=== PATIENT | female | born 1940 | race Caucasian/White ===

== ENCOUNTER 2022-05-17 15:49 | Inpatient (IN) | payer MEDICARE, MEDICAID, SELFPAY ==
[2022-05-17] VITALS (8 sets, daily range): BP systolic 141–168; BP diastolic 77–103; PULSE 59–75; RESP 14–20; TEMP 36.4–37.2; O2SAT 86–94; BMI 30.7
--- NOTE | ~2022-05-17 | US_ITS ---
EXAMINATION: US renal BI DATE: 05/18/2022 11:26 INDICATION: Kidney failure. TECHNIQUE: Multiple ultrasound grayscale images of the kidneys were obtained. COMPARISON: CT abdomen and pelvis 02/24/2011 FINDINGS: The right kidney measures 9.0 x 4.2 x 5.1 cm. The left kidney measures 9.2 x 4.2 x 4.6 cm. The kidney s demonstrate normal parenchymal echogenicity. There is no hydronephrosis. The bladder is decompresse d by a Haji catheter. IMPRESSION: 1. Normal kidney sizes. No hydronephrosis. Reviewed, dictated and finalized at location A.
--- NOTE | ~2022-05-17 | US_ITS ---
EXAMINATION:US venous doppler LE BI INDICATION:Leg edema TECHNIQUE: Multiple grayscale, color flow and Doppler images of the right and left lower extremity de ep venous systems were obtained and reviewed. COMPARISON:No prior studies for comparison. FINDINGS: The common femoral, superficial femoral and popliteal veins demonstrate normal respiratory variation, augmentation and compressibility. Color flow is also seen within the posterior tibial, pe roneal, greater saphenous and profunda veins. There is a right Sexton's cyst measuring 5.2 x 1.2 cm. IMPRESSION: 1: No lower extremity deep venous thrombosis. Reviewed, dictated and finalized at location B.
--- NOTE | ~2022-05-17 | XR_ITS ---
XR chest 1V portable DATE: 05/17/2022 17:58 INDICATION: Low oxygen saturation. New congestive heart failure. History of hypertension, diabetes TECHNIQUE: Portable upright AP view on 05/13/2022 at 1754 hours COMPARISON: 05/24/2017 PA and lateral chest FINDINGS: Cardiomegaly. There is mild pulmonary vascular congestion, redistribution, mild pleural eff usions and bilateral pulmonary infiltrates, primarily in the lower lung zones, left greater than righ t. The findings suggest congestive heart failure, pulmonary edema. Pneumonia and aspiration are not e xcluded. Scoliosis and degenerative change of the thoracic spine. Osteopenia. IMPRESSION: Congestive changes and bilateral predominantly lower lung infiltrates, left greater than right Reviewed, dictated and finalized at location A. IMPRESSION: Congestive changes and bilateral predominantly lower lung infiltrat es, left greater than right
--- NOTE | 2022-05-17 15:57 | ECG_ITS ---
Measurements Intervals [place] Rate: 72 P: 74 AR: 267 QRS: -7 QRSD: 88 T: 94 QT: 367 QTc: 404 Interpretive Statements SINUS RHYTHM WITH FIRST DEGREE AV BLOCK BASELINE ARTIFACT CANNOT RULE OUT ANTERIOR MYOCARDIAL INFARCTION, PROBABLY OLD CANNOT RULE OUT INFERIOR MYOCARDIAL INFARCTION, PROBABLY OLD ABNORMAL ECG NO PREVIOUS ECG AVAILABLE FOR COMPARISON Electronically Signed On 05-17-2022 16:29:30 CDT by Bill Lozano M.D.
--- NOTE | 2022-05-17 16:35 | ED.GENADULT ---
HPI - General Adult General Chief complaint: Shortness of Breath/Dyspnea Stated complaint: sob Time Seen by Provider: 05/17/22 16:12 History of Present Illness HPI narrative: this is an 82-year-old female presents to the ED for low oxygen levels. She was having shortness of breath and was found to be saturating in the 70s. The patient has a dry cough. The patient is denies chest pain, abdominal pain, fever, chills, She denies lower extremity edema. denies history of COPD or heart failure. Patient denies any other complaints. Related Data Allergies Allergy/AdvReac Type Severity Reaction Status Date / Time erythromycin base Allergy Unknown Unknown Verified 05/17/22 17:45 Penicillins Allergy Unknown Unknown Verified 05/17/22 17:45 Review of Systems Review of Systems: CONSTITUTIONAL: Denies night sweats. EYES: No eye pain ENT: Denies rhinorrhea CARDIOVASCULAR: Denies palpitations RESPIRATORY: Denies hemoptysis GASTROINTESTINAL: Denies hematemesis GENITOURINARY: Denies hematuria. SKIN: Denies rash MUSCULOSKELETAL: Denies myalgia. NEUROLOGIC: Denies weakness. PSYCHIATRIC: Denies delusions PMFSH Past Medical History Medical History Essential (primary) hypertension Essential (primary) hypertension Hyperlipidemia Hyperlipidemia Hypothyroid Hypothyroid Type 2 diabetes mellitus without complications Type 2 diabetes mellitus without complications Surgical History Surgical History History of bilateral hip replacements Family History Family History Other Family history of development disorder Hypertension Social History Social History Smoking status: Never smoker Second hand tobacco smoke exposure: No Alcohol intake: current Exam Narrative: APPEARANCE: No apparent distress. Head atraumatic. EYES: PERRLA/EOMI, NOSE: Normal no drainage NECK: Supple, Trachea midline RESPIRATORY: Patient has scattered expiratory wheezes and rhonchi bilaterally. CARDIOVASCULAR: S1S2 appreciated , no peripheral edema ABDOMINAL: Soft, nontender, nondistended, MUSCULOSKELETAl: No obvious deformities NEURO: Alert. Moving 4/4 extremities SKIN:: Warm, dry. Normal color PSYCHIATRIC: Normal affect Course Vital Signs Vital signs: Vital Signs Temperature 99 F 05/17/22 15:49 Pulse Rate 75 05/17/22 15:49 Respiratory Rate 19 05/17/22 15:49 Pulse Oximetry 93 05/17/22 15:49 Oxygen Delivery Nasal Cannula 05/17/22 15:49 Oxygen Flow Rate 4 05/17/22 15:49 Temperature 99 F 05/17/22 15:49 Pulse Rate 60 05/17/22 16:47 Respiratory Rate 20 05/17/22 16:47 Blood Pressure 145/88 H 05/17/22 16:47 Pulse Oximetry 94 05/17/22 16:47 Oxygen Delivery Nasal Cannula 05/17/22 15:58 Oxygen Flow Rate 4 05/17/22 15:58 Procedures Pulse Oximetry Interpretation Digit-Finger: Initial pulse oximetry readin Pulse Oximetry: 94 Actions Taken: increased FIO2 to (Placed on supplemental 02 4L nc) Medical Decision Making MDM Narrative Medical decision making narrative: this is an 82-year-old female presenting ED with shortness of breath and hypoxia. She was in the 80s on room air. She was placed on 4 L nasal cannula which improved her saturation. Patient has scattered rhonchi in her lungs consistent with pneumonia or new onset heart failure. Lab work, EKG, chest x-ray, COVID and flu swabs have been ordered. EKG interpretation: Rhythm [sinus], Rate 72, Hext -[normal], FL -[normal], QRS [narrow], QTC [normal], T waves -, ST Segments - [Negative for concerning elevations] Final interpretations: [Normal Sinus Rhythm] Has a mild troponin elevation at 0.045. She has been given aspirin this [place] [address]. The rest her laboratory studi
[2022-05-17 16:42] LABS: Basophils Absolute Auto 0.1 K/mm3 (0.0-0.1); Basophils Percent Auto 1.3 % (0.2-1.2); Eosinophils Absolute Auto 0.1 K/mm3 (0-0.3); Eosinophils Percent Auto 1.5 % (0-4.4); Hematocrit 37.9 % (37.0-47.0); Hemoglobin 11.9 g/dL (12.0-15.0); Immature Granulocyte Absolute 0.02 K/mm3 (0.00-0.031); Immature Granulocyte Percent A 0.4 % (0-0.5); Lymphocytes Absolute Auto 2.39 K/mm3 (0.9-3.2); Lymphocytes Percent Auto 43.9 % (18.3-44.2); Mean Corpuscular HGB Conc 31.4 g/dl (32-36); Mean Corpuscular Hemoglobin 30.4 pg (26-34); Mean Corpuscular Volume 96.7 fl (80-100); Mean Platelet Volume 9.3 fl (7.4-10.4); Monocytes Absolute Auto 0.6 K/mm3 (0.1-0.6); Monocytes Percent Auto 10.3 % (2.6-8.5); Neutrophils Absolute Auto 2.3 K/mm3 (1.3-6.7); Neutrophils Percent Auto 42.6 % (45.5-73.1); Platelet Count Result 200 k/mm3 (150-375); Red Blood Count 3.92 M/mm3 (4.2-5.4); Red Cell Distribution Width 16.6 % (11.5-14.5); White Blood Count 5.4 K/mm3 (4.5-10.0)
[2022-05-17] MEDS: SODIUM CHLORIDE 0.9% IV 1,000 ML 999 ML IV CONT (16:45)
[2022-05-17 16:59] LABS: Alanine Aminotransferase 15 U/L (6-35); Albumin Level 4.3 g/dL (3.5-5.1); Alkaline Phosphatase 78 U/L (38-126); Anion Gap 14 mmol/L (8-16); Aspartate Amino Transferase 26 U/L (14-36); Bilirubin,Total 0.6 mg/dL (0.2-1.3); Blood Urea Nitrogen 16 mg/dL (7-17); Calcium 8.7 mg/dL (8.4-10.2); Carbon Dioxide 35 mmol/L (22-30); Chloride 91 mmol/L (98-107); Estimated CRCL calculation 29 ml/min; Estimated Glomerular Filt Rate 36; Glucose 123 mg/dL (65-110); Magnesium 1.9 mg/dL (1.6-2.3); Potassium 3.6 mmol/L (3.4-5.0); Sodium 140 mmol/L (137-145)
[2022-05-17 17:02] LABS: NT Pro B Type Natriuretic Pept 11300 pg/mL (5-100)
[2022-05-17 17:16] LABS: Influenza A QL RT-PCR Negative (Negative); Influenza B QL RT-PCR Negative (Negative); SARS-CoV-2 RNA PCR Negative
[2022-05-17 17:34] LABS: Troponin I 0.045 ng/mL (0.000-0.034)
[2022-05-17] MEDS: FUROSEMIDE INJ 40 MG/4 ML VIAL IV PUSH (17:45)
[2022-05-17 18:02] LABS: Add Urine Microscopic? YES; Appearance Urine Cloudy (Clear); Bacteria Urine Trace /hpf; Bilirubin Urine Negative (Negative); Blood Urine Negative (Negative); Budding Yeast Urine Present /hpf; Color Urine Yellow (Yellow); Glucose Urine UA Negative (Negative); Ketones Urine Negative (Negative); Leukocyte Esterase Ur 3+ LEU/UL (Negative); Mucus Urine Rare /lpf; Nitrate Urine Negative (Negative); Protein Urine 2+ mg/dL (Negative); Squamous Epithelial Cell Urine Occasional /hpf (Few); Urobilinogen Urine Negative mg/dL (<2.0); WBC Urine >75 /hpf
--- NOTE | 2022-05-17 18:28 | PC.NURSE ---
Patient is continent and using bedside commode.
--- NOTE | 2022-05-17 19:00 | PC.NURSE ---
assumed care of pt. at this time. Report from ESPERANZA Acuna
--- NOTE | 2022-05-17 19:00 | PM.IMHP ---
H&P: HPI History of Present Illness Date/Time: 05/17/22 19:00 <Tita Toledo PA-C - Last Filed: 05/19/22 01:26> Chief Complaint: Shortness of breath. <Tita Toledo PA-C - Last Filed: 05/19/22 01:26> Narrative: This is an 82-year-old female with hypertension and type 2 diabetes mellitus who presented to the emergency department for evaluation of shortness of breath. She is not the greatest historian and initially the only thing she could tell me that was that she feels ?terrible.? After pretty extensive questioning I was able to ascertain that she has had a dry cough, decreased appetite, and mild shortness of breath. It is my understanding that she was hypoxic this morning at her assisted living facility with SpO2 in the 70s and she was sent to the ER for evaluation. She is currently requiring 4 liters nasal cannula to keep her oxygen saturations in the mid 90s. The rest her vital signs were stable on arrival. Chest x-ray showed congestive changes and bilateral predominantly lower lung infiltrates and her troponin and BNP were both elevated and she is being admitted in this setting for presumed new onset congestive heart failure. She has no known history of cardiac disease and she denies having experienced any chest pain, nausea, sweats, or the like in the last couple of days. <Tita Toledo PA-C - Last Filed: 05/19/22 01:26> Review of Systems Review of Systems: Twelve systems were reviewed. She thinks her weight has remained stable. She has not had a fever. She denies headache. No sinus congestion or sore throat. She denies chest pain, pleuritic pain, and palpitations. No orthopnea, paroxysmal nocturnal dyspnea, or significant lower extremity edema that she has noticed. She has had a wound on her mid upper chest for quite some time, initially she thought perhaps it was due to a bug bite and she has been caring for it at home. In fact she keeps it covered with Band-Aids and she has not let anybody look at it. 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 She denies nausea, vomiting, and diarrhea but her appetite has been poor. No dysuria, urinary urgency, frequency, hesitancy, or any other UTI like symptoms. Except as documented, all other systems were reviewed and are negative. <Tita Toledo PA-C - Last Filed: 05/19/22 01:26> [facility] Past Medical History Medical History: Medical History Essential (primary) hypertension Hyperlipidemia Hypothyroid Type 2 diabetes mellitus without complications <Tita Toledo PA-C - Last Filed: 05/19/22 01:26> Surgical History Surgical History: Surgical History History of bilateral hip replacements <JERICHO Ramos Last Filed: 05/19/22 01:26> Family History Family History: Family History Other Family history of development disorder Hypertension <Tita Toledo PA-C - Last Filed: 05/19/22 01:26> Social History Social History: Social History Social History: Surrogate medical decision maker: Valentín Newby, son. Code status: Full code. Smoking status: Never smoker Second hand tobacco smoke exposure: No Alcohol intake: never Substance use: never Lack of Transportation: No Lack of Food: Never True Current Housing: I Have Housing Concerned About Future Housing: No Difficulty Paying Gas/Electric Bills: No Difficulty Paying for Meds: No Currently Unemployed: No Education: High School Diploma/GED Difficulty w/ Childcare or Family Care: No Additional living arrangements comments: Assisted living at [facility]. Spiritual care concerns: No <JERICHO Ramos Last Filed: 1
--- NOTE | 2022-05-17 19:30 | PM.CNCAR ---
Assessment and Plan Assessment and plan (1) Congestive heart failure: Code(s): I50.9 - Heart failure, unspecified Status: Acute Assessment and Plan: Unknown at this time if systolic or diastolic heart failure. CXR shows CHF with NTproBNP 11,300. Received Lasix 40 mg IV x1 in ER. Continue Lasix 20 mg IV BID. Obtain echo. (2) Acute UTI: Code(s): N39.0 - Urinary tract infection, site not specified Status: Acute Assessment and Plan: Antibiotic as per hospitalist. (3) Hyperlipidemia: Code(s): E78.5 - Hyperlipidemia, unspecified Status: Acute Assessment and Plan: On Atorvastatin. (4) Essential (primary) hypertension: Code(s): I10 - Essential (primary) hypertension Status: Acute Assessment and Plan: Mildly high. Monitor. (5) Type 2 diabetes mellitus without complications: Code(s): E11.9 - Type 2 diabetes mellitus without complications Status: Acute Assessment and Plan: Manage as per hospitalist. (6) Elevated troponin: Code(s): R77.8 - Other specified abnormalities of plasma proteins Status: Acute Assessment and Plan: Mild elevation at .045. Elevation could be due to combination of CHF/UTI/acute ARF. EKG does not suggest ACS without any acute ST changes. Trend troponin. History of Present Illness History of Present Illness Consult date/time: 05/17/22 19:30 Reason For Visit: CHF Narrative: 82 yr old woman from [facility] presents to ER for sob. She has a history of DM, hypertension and dyslipidemia. Reports that at [facility] she felt sob and had cough. Her pulse ox was checked and running low in 70-80% range. Ambulance then brought her to ER. Currently she is on oxygen with pulse ox at 92%, had Lasix IV dose and feeling less sob. Normally she walks holding on to a rail to avoid falling and can walk at leisurely to slow pace where she resides just fine. Has edema of legs. Denies chest pain, palpitations, dizziness. Review of Systems Review of Systems: All systems reviewed & are unremarkable except as noted in HPI and below Constitutional: Constitutional: Reports as per HPI, Denies chills and Denies fever(s) Cardiovascular: Cardiovascular: Reports as per HPI, Denies chest pain, Denies irregular heart rhythm, Reports leg edema and Denies lightheadedness Respiratory: Respiratory: Reports as per HPI, Reports cough and Reports dyspnea Gastrointestinal: Gastrointestinal: Reports as per HPI and Denies abdominal pain Genitourinary: Genitourinary: Reports as per HPI and Denies dysuria Musculoskeletal: Musculoskeletal: Reports as per HPI Neurologic: Reports as per HPI, Denies dizziness and Denies syncope [facility] Past Medical History Medical History (Updated 05/17/22 @ 19:37 by Kp Daly DO) Essential (primary) hypertension Hyperlipidemia Hypothyroid Type 2 diabetes mellitus without complications Surgical History Surgical History History of bilateral hip replacements Family History Family History Other Family history of development disorder Hypertension Social History Social History Smoking status: Never smoker Second hand tobacco smoke exposure: No Alcohol intake: current Meds Home Medications and Allergies Home Medications Medication Instructions Recorded Confirmed Type atorvastatin 40 mg tablet 40 mg PO QHS #90 tabs 03/12/21 Rx cholecalciferol (vitamin D3) 1,250 1,250 mcg PO WEEKLY #12 caps 03/12/21 Rx mcg (50,000 unit) capsule levothyroxine 88 mcg tablet 88 mcg PO DAILY #90 tabs 03/12/21 Rx potassium chloride 20 mEq 20 meq PO DAILY #30 tabs 05/15/21 Rx tablet,extended release losartan 100 mg tablet 100 mg PO DAILY #90 tabs 11/03/21 Rx sitagliptin 100 mg tablet (Januvia) 100 mg PO
--- NOTE | 2022-05-17 20:00 | ADMGEN ---
This patient, Irina Fitzgerald, was admitted to IMU Room 205-01. Patient/family oriented to hospital policies and general routines including ID bracelet, bed and alarms, visiting hours, pain management, procedures, bathroom and other care routines, personal items, smoking policy, room service/diet, and visiting hours. Information on how to activate the Rapid Response Team has been discussed. Patient/Family are encouraged to report perceived risks to care and to ask questions if they do not understand what they are told or what they should do.
[2022-05-17 22:20] LABS: Troponin I 0.058 ng/mL (0.000-0.034)
[2022-05-18] VITALS (18 sets, daily range): BP systolic 102–129; BP diastolic 48–72; PULSE 53–89; RESP 17–19; TEMP 36.5–37; O2SAT 90–100
--- NOTE | 2022-05-18 | ECHO_ITS ---
Patient Info Name: Irina Fitzgerald Age: 82 years : 1940 Gender: Female Ht: 64 in Wt: 179 lbs BSA: 1.94 m2 HR: 54 bpm BP: 121 / 65 mmHg Heart Rhythm: Sinus Rhythm Technical Quality: Fair Exam Date: 05/18/2022 9:31 AM Exam Location: [facility] Patient Status: Inpatient Admit Date: 05/18/2022 Staff Ordering Physician: Kp Daly DO Textile Examiner: Roxy Son RDCS Attending Provider: Denita Botello MD Referring Physician: Addy BLAKELY; Exam Type: CA echo doppler color flow Study Info Indications - chf Complete two-dimensional, color flow and Doppler transthoracic echocardiogram is performed. Summary 1. Complete two-dimensional, color flow and Doppler transthoracic echocardiogram is performed. 2. Left ventricular chamber dimension is mildly enlarged. 3. Entire apex is severely hypokinetic to akinetic. No apical thrombus. 4. Left ventricular systolic function is mildly reduced, estimated at 45-50%. 5. The left ventricular diastolic function is abnormal. 6. E/e' 35 is significantly elevated. 7. There is moderate aortic valve sclerosis. 8. There is mild aortic valve stenosis with a peak velocity of 188 cm/s, mean gradient of 8 mmHg, and aortic valve area of 1.6 cm2. 9. There is mild mitral valve regurgitation. 10. There is mild tricuspid valve regurgitation. 11. Mild pulmonary hypertension, estimated pulmonary arterial systolic pressure is 47 mmHg. 12. There is trace pulmonic regurgitation. Left Ventricle E/e' 35 is significantly elevated. Entire apex is severely hypokinetic to akinetic. No apical thrombus. Left ventricular chamber dimension is mildly enlarged. Left ventricular systolic function is mildly reduced, estimated at 45-50%. The left ventricular diastolic function is abnormal. Right Ventricle Right ventricular chamber dimension is normal. Right ventricular systolic function is normal. Left Atria Left atrial chamber dimension is normal. Right Atria Right atrial chamber dimension is normal. Aortic Valve The aortic valve is trileaflet. There is moderate aortic valve sclerosis. There is mild aortic valve stenosis with a peak velocity of 188 cm/s, mean gradient of 8 mmHg, and aortic valve area of 1.6 cm2. There is no aortic valve regurgitation. Pulmonic Valve There is trace pulmonic regurgitation. Mitral Valve There is no mitral valve stenosis. There is mild mitral valve regurgitation. Tricuspid Valve There is mild tricuspid valve regurgitation. Mild pulmonary hypertension, estimated pulmonary arterial systolic pressure is 47 mmHg. Pericardium/Pleural There is no pericardial effusion. Inferior Vena Cava Normal inferior vena cava with >50% collapse upon inspiration consistent with normal right atrial pressure, 5 mmHg. Aorta The aortic root size at the sinus of Valsalva is normal. Left Ventricular Outflow Tract Name Value Normal LVOT 2D LVOT Diameter 2.0 cm LVOT Doppler LVOT Peak Gradient 4 mmHg LVOT Mean Gradient 2 mmHg LVOT VTI 20 cm
[2022-05-18 02:37] LABS: D Dimer 2.35 ug/mL (<0.48); Troponin I 0.067 ng/mL (0.000-0.034)
[2022-05-18 05:13] LABS: Hematocrit 36.7 % (37.0-47.0); Hemoglobin 11.6 g/dL (12.0-15.0); Mean Corpuscular HGB Conc 31.6 g/dl (32-36); Mean Corpuscular Hemoglobin 29.7 pg (26-34); Mean Corpuscular Volume 93.9 fl (80-100); Platelet Count Result 187 k/mm3 (150-375); Red Blood Count 3.91 M/mm3 (4.2-5.4); White Blood Count 4.9 K/mm3 (4.5-10.0)
[2022-05-18 05:23] LABS: Alanine Aminotransferase 14 U/L (6-35); Albumin Level 3.8 g/dL (3.5-5.1); Alkaline Phosphatase 76 U/L (38-126); Anion Gap 12 mmol/L (8-16); Aspartate Amino Transferase 22 U/L (14-36); Bilirubin,Total 0.8 mg/dL (0.2-1.3); Blood Urea Nitrogen 13 mg/dL (7-17); Calcium 8.3 mg/dL (8.4-10.2); Carbon Dioxide 38 mmol/L (22-30); Chloride 91 mmol/L (98-107); Estimated CRCL calculation 30 ml/min; Estimated Glomerular Filt Rate 39; Glucose 107 mg/dL (65-110); Potassium 3.3 mmol/L (3.4-5.0); Sodium 141 mmol/L (137-145)
[2022-05-18 05:24] LABS: Hemoglobin A1C 6.5 % (<5.7)
[2022-05-18 07:16] LABS: Free T4 Free Thyroxine Reflex 0.38 ng/dL (0.78-2.19)
[2022-05-18 07:46] LABS: Cholesterol 187 mg/dL (0-200); HDL Direct 26 mg/dL; Triglycerides 139 mg/dL (<150)
[2022-05-18 07:57] LABS: LDL Cholesterol Direct 133 mg/dL
--- NOTE | 2022-05-18 07:58 | PM.PNCARD ---
Progress Note: A&P Assessment and Plan (1) Congestive heart failure: Code(s): I50.9 - Heart failure, unspecified Status: Acute Assessment and Plan: Unknown at this time if systolic or diastolic heart failure. CXR shows CHF with NTproBNP 11,300. Received Lasix 40 mg IV x1 in ER. Continue Lasix 20 mg IV BID. KCl 20 meq PO BID for potassium 3.3. Obtain echo today. (2) Acute UTI: Code(s): N39.0 - Urinary tract infection, site not specified Status: Acute Assessment and Plan: Antibiotic as per hospitalist. (3) Hyperlipidemia: Code(s): E78.5 - Hyperlipidemia, unspecified Status: Acute Assessment and Plan: On Atorvastatin. (4) Essential (primary) hypertension: Code(s): I10 - Essential (primary) hypertension Status: Acute Assessment and Plan: Stable. (5) Type 2 diabetes mellitus without complications: Code(s): E11.9 - Type 2 diabetes mellitus without complications Status: Acute Assessment and Plan: Manage as per hospitalist. (6) Elevated troponin: Code(s): R77.8 - Other specified abnormalities of plasma proteins Status: Acute Assessment and Plan: Mild elevation at .045, .058, .067. Elevation could be due to combination of CHF/UTI/acute ARF. EKG does not suggest ACS without any acute ST changes. (7) Leg edema, right: Code(s): R60.0 - Localized edema Status: Acute Assessment and Plan: Venous duplex study. Subjective Date/time seen: 05/18/22 07:58 Interval history: Denies chest pain or sob this morning. Exam Const: General: cooperative, healthy appearing and comfortable Resp: Auscultation: no crackles, no rales, rhonchi and no wheezes Cardio: Rate: regular rate Rhythm: regular rhythm Heart sounds: no murmurs Peripheral pulses: dorsalis pedis present GI: GI Palp: No abdominal tenderness and Yes Soft to palpation Neuro: General: oriented to person, oriented to place and oriented to time Extrem: Right lower extremity: edema Left lower extremity: no edema Other: Mild-mod edema of right leg Objective Data Vital Signs Vital Signs: Vital Signs - 24 hr 05/17/22 18:27 05/17/22 15:49 05/17/22 15:58 Temperature 99 F Pulse Rate 75 Respiratory Rate 19 Blood Pressure 168/103 H Pulse Oximetry 93 Pulse Oximetry [Digit-Finger] 94 Oxygen Delivery Nasal Cannula Oxygen Flow Rate 4 05/17/22 15:58 05/17/22 15:58 05/17/22 16:47 Temperature Pulse Rate 60 Respiratory Rate 20 Blood Pressure 145/88 H Pulse Oximetry 86 L 94 94 Pulse Oximetry [Digit-Finger] Oxygen Delivery Room Air Nasal Cannula Oxygen Flow Rate 4 05/17/22 19:15 05/17/22 20:00 05/17/22 22:00 Temperature 98.2 F 97.9 F Pulse Rate 66 66 63 Respiratory Rate 14 20 Blood Pressure 158/98 H 151/88 H Pulse Oximetry 94 93 Pulse Oximetry [Digit-Finger] Oxygen Delivery Oxygen Flow Rate 05/17/22 23:36 05/18/22 00:00 05/18/22 00:00 Temperature 97.6 F Pulse Rate 59 L 63 Respiratory Rate 18 Blood Pressure 141/77 H Pulse Oximetry 94 95 Pulse Oximetry [Digit-Finger] Oxygen Delivery Nasal Cannula Oxygen Flow Rate 4 05/18/22 02:00 05/18/22 04:00 05/18/22 04:00 Temperature 97.7 F Pulse Rate 55 L 66 55 L Respiratory Rate 18 Blood Pressure 121/65 Pulse Oximetry 90 Pulse Oximetry [Digit-Finger] Oxygen Delivery Oxygen Flow Rate 05/18/22 04:00 05/18/22 06:00 Temperature Pulse Rate 54 L Respiratory Rate Blood Pressure Pulse Oximetry 95 Pulse Oximetry [Digit-Finger] Oxygen Delivery Nasal Cannula Oxygen Flow Rate 4 Intake/Output Intake/Output: Intake & Output 05/15/22 05/16/22 05/17/22 05/18/22 23:59 23:59 23:59 23:59 Intake Total 1000 50 Output Total 2900 1200 Balance -1900 -1150 Meds/Results Medications: Active Medications Generic Name Dose Route Start Last Admin Trade Name Freq PRN Rose
[2022-05-18 08:01] LABS: Glucose Point of Care 108 mg/dl (65-105)
[2022-05-18] MEDS: ENOXAPARIN 40 MG/0.4 ML SYRINGE SUB-Q (08:22)
[2022-05-18] MEDS: FUROSEMIDE INJ 40 MG/4 ML VIAL 20 MG IV PUSH ×2 (08:22→16:18)
[2022-05-18] MEDS: LOSARTAN POTASSIUM 100 MG TABLET PO (08:22)
[2022-05-18] MEDS: POTASSIUM CHLORIDE 20 MEQ TABLET.ER PO ×2 (08:40→16:24)
--- NOTE | 2022-05-18 08:42 | PM.IMPN ---
Progress Note: A&P Assessment and Plan (1) Congestive heart failure: Code(s): I50.9 - Heart failure, unspecified Status: Acute Assessment and Plan: New onset. BNP 31584. Echo finalization pending. Improved. -Continue furosemide 20 mg IV BID -Continue potassium 20 mEq BIDWM -Appreciate Cardiology recommendations (2) Elevated troponin: Code(s): R77.8 - Other specified abnormalities of plasma proteins Status: Acute Assessment and Plan: Troponin 0.045-->0.058--->0.067. Denies chest pain. -Appreciate Cardiology recommendations (3) Skin lesion of chest wall: Code(s): L98.9 - Disorder of the skin and subcutaneous tissue, unspecified Status: Acute Assessment and Plan: Plastic surgery has been consulted. (4) Essential (primary) hypertension: Code(s): I10 - Essential (primary) hypertension Status: Acute Assessment and Plan: Takes losartan 100 mg daily at home. Continue home medications (5) Type 2 diabetes mellitus without complications: Code(s): E11.9 - Type 2 diabetes mellitus without complications Status: Acute Assessment and Plan: Takes sitagliptin at home. Continue. -SSI -poc glucose (6) Abnormal urinalysis: Code(s): R82.90 - Unspecified abnormal findings in urine Status: Acute Assessment and Plan: Has some weakness, so will continue treatment for UTI. UCX pending. -Ceftriaxone 1g daily Plan Subjective Date/time seen: 05/18/22 08:42 Patient denies chest pain or difficulty breathing. Patient sys she does not take any thyroid medication or have a history of hypothyroidism. Review of Systems Respiratory: Respiratory: Denies dyspnea Objective Data Vital Signs Vital Signs: Vital Signs - 24 hr 05/17/22 18:27 05/17/22 15:49 05/17/22 15:58 Temperature 37.2 C Pulse Rate 75 Respiratory Rate 19 Blood Pressure 168/103 H Pulse Oximetry 93 Pulse Oximetry [Digit-Finger] 94 Oxygen Delivery Nasal Cannula Oxygen Flow Rate 4 05/17/22 15:58 05/17/22 15:58 05/17/22 16:47 Temperature Pulse Rate 60 Respiratory Rate 20 Blood Pressure 145/88 H Pulse Oximetry 86 L 94 94 Pulse Oximetry [Digit-Finger] Oxygen Delivery Room Air Nasal Cannula Oxygen Flow Rate 4 05/17/22 19:15 05/17/22 20:00 05/17/22 22:00 Temperature 36.8 C 36.6 C Pulse Rate 66 66 63 Respiratory Rate 14 20 Blood Pressure 158/98 H 151/88 H Pulse Oximetry 94 93 Pulse Oximetry [Digit-Finger] Oxygen Delivery Oxygen Flow Rate 05/17/22 23:36 05/18/22 00:00 05/18/22 00:00 Temperature 36.4 C Pulse Rate 59 L 63 Respiratory Rate 18 Blood Pressure 141/77 H Pulse Oximetry 94 95 Pulse Oximetry [Digit-Finger] Oxygen Delivery Nasal Cannula Oxygen Flow Rate 4 05/18/22 02:00 05/18/22 04:00 05/18/22 04:00 Temperature 36.5 C Pulse Rate 55 L 66 55 L Respiratory Rate 18 Blood Pressure 121/65 Pulse Oximetry 90 Pulse Oximetry [Digit-Finger] Oxygen Delivery Oxygen Flow Rate 05/18/22 04:00 05/18/22 06:00 05/18/22 08:11 Temperature 37.0 C Pulse Rate 54 L 57 L Respiratory Rate 17 Blood Pressure 128/72 Pulse Oximetry 95 100 Pulse Oximetry [Digit-Finger] Oxygen Delivery Nasal Cannula Oxygen Flow Rate 4 Intake/Output Intake/Output: Intake & Output 05/15/22 05/16/22 05/17/22 05/18/22 23:59 23:59 23:59 23:59 Intake Total 1000 50 Output Total 2900 1600 Balance -1900 -1550 Meds/Results Medications: Active Medications Generic Name Dose Route Start Last Admin Trade Name Freq PRN Reason Stop Dose Admin Dextrose 12.5 gm 05/18/22 00:51 Dextrose 50% 25 Gm/50 Ml Syringe IV PUSH PRN PRN Hypoglycemia Protocol Enoxaparin Sodium 40 mg 05/18/22 09:00 05/18/22 08:22 Enoxaparin 40 Mg/0.4 Ml Syringe SUB-Q 40 mg DAILY [facility] Adm
[2022-05-18] MEDS: LEVOTHYROXINE SODIUM 25 MCG TABLET PO (10:04)
[2022-05-18 11:55] LABS: Glucose Point of Care 165 mg/dl (65-105)
--- NOTE | 2022-05-18 12:50 | WPDCN ---
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 After discharge we do need to see her back to do a full body skin check and plan for treatment of these lesions. This was discussed with her. Will follow-up. HPI Data of Consult Date/Time: 05/18/22 12:50 Requesting Physician: Denita Botello MD Primary Care Provider: Zonia Evangelista MD Consult Narrative Reason for consult: Ulcerative mass chest Narrative: Irina Fitzgerald is a 82 year old female who was admitted with multiple medical problems. While here she was noted to have an ulcerated mass on her central chest. They asked me to evaluate for consultation. The patient is a poor historian. She is not exactly clear how long this has been there. She states I thought a bee stung me there PMFSH Past Medical History Medical History Essential (primary) hypertension Hyperlipidemia Hypothyroid Type 2 diabetes mellitus without complications Surgical History Surgical History History of bilateral hip replacements Family History Family History Other Family history of development disorder Hypertension Social History Social History (Updated 05/18/22 @ 00:44 by Tita Toledo PA-C) Social History: Surrogate medical decision maker: Valentín worthington, alea. Code status: Full code. Smoking status: Never smoker Second hand tobacco smoke exposure: No Alcohol intake: never Substance use: never Additional living arrangements comments: Assisted living at [facility]. Spiritual care concerns: No Has the Lack of Transportation Kept You From Medical Appointments or From Getting Medications?: No Within the Past 12 Months, Were You Worried Whether Your Food Would Run Out Before You Got Money to Buy More?: Never True What is Your Housing Situation Today?: I Have Housing Are You Worried That in the Next 2 Months, You May Not Have Your Own Housing to Live In?: No Do You Have Trouble Paying Your Heating Or Electricity Bill?: No Do You Have Trouble Paying For Medicines?: No Are You Currently Unemployed and Looking for Work?: No Highest Level of Education Completed: High School Diploma/GED Do You Have Trouble With Childcare or the Care of a Family Member?: No Meds Home Medications and Allergies Home Medications Medication Instructions Recorded Confirmed Type losartan 100 mg tablet 100 mg PO DAILY 05/17/22 05/17/22 History sitagliptin 100 mg tablet (Januvia) 100 mg PO DAILY 05/17/22 05/17/22 History Allergies Allergy/AdvReac Type Severity Reaction Status Date / Time erythromycin base Allergy Unknown Unknown Verified 05/17/22 17:45 Penicillins Allergy Unknown Unknown Verified 05/17/22 17:45 Vital Signs Vital Signs - 24 hr 05/17/22 18:27 05/17/22 15:49 05/17/22 15:58 Temperature 37.2 C Pulse Rate 75 Respiratory Rate 19 Blood Pressure 168/103 H Pulse Oximetry 93 Pulse Oximetry [Digit-Finger] 94 Oxygen Delivery Nasal Cannula Oxygen Flow Rate 4 05/17/22 15:58 05/17/22 15:58 05/17/22 16:47 Temperature Pulse Rate 60 Respiratory Rate 20 Blood Pressure 145/88 H Pulse Oximetry 86 L 94 94 Pulse Oximetry [Digit-Finger] Oxygen Delivery Room Air Nasal Cannula Oxygen Flow Rate 4 05/17/22 19:15 05/17/22 20:00 05/17/22 22:00 Temperature 36.8 C 36.6 C Pulse Rate 66 66 63 Respiratory Rate 14 20 Blood Pressure 158/98 H 151/88 H Pulse Oximetry 94 93 Pulse Oximetry [Digit-Finger] Oxygen Delivery Oxygen Flow Rate
[2022-05-18 16:12] LABS: Glucose Point of Care 119 mg/dl (65-105)
[2022-05-18 19:54] LABS: Glucose Point of Care 159 mg/dl (65-105)
[2022-05-19] VITALS (14 sets, daily range): BP systolic 100–130; BP diastolic 60–75; PULSE 53–80; RESP 16–20; TEMP 36.1–37.1; O2SAT 90–95
[2022-05-19] MEDS: LEVOTHYROXINE SODIUM 25 MCG TABLET PO (05:03)
[2022-05-19 05:32] LABS: Blood Urea Nitrogen 13 mg/dL (7-17); Calcium 8.2 mg/dL (8.4-10.2); Carbon Dioxide > 40 mmol/L (22-30); Chloride 87 mmol/L (98-107); Estimated CRCL calculation 26 ml/min; Estimated Glomerular Filt Rate 33; Glucose 99 mg/dL (65-110); Potassium 3.9 mmol/L (3.4-5.0); Sodium 138 mmol/L (137-145)
[2022-05-19 05:47] LABS: Troponin I 0.047 ng/mL (0.000-0.034)
--- NOTE | 2022-05-19 07:47 | PM.PNCARD ---
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 CXR shows CHF with NTproBNP 11,300. Received Lasix 40 mg IV x1 in ER. On Lasix 20 mg IV BID and KCl 20 meq PO BID. On Losartan. Due to bradycardia, will hold off on beta radames. 05/18/22 Echo: EF 45-50%, apical akinesis, significant diastolic dysfunction with E/e' 35, mild (LOVE 1.6 cm2), mild MR/TR, RVSP 47 mmHg. Appears euvolemic now. Change Lasix 20 mg IV BID to PO BID to maintain euvolemia. (2) Acute UTI: Code(s): N39.0 - Urinary tract infection, site not specified Status: Acute Assessment and Plan: Antibiotic as per hospitalist. (3) Hyperlipidemia: Code(s): E78.5 - Hyperlipidemia, unspecified Status: Acute Assessment and Plan: Start Pravastatin and aspirin EC 81 mg daily, given she probably has CAD with apical akinesis. However this is not acute wall motion abnormality given only slight troponin elevation. (4) Essential (primary) hypertension: Code(s): I10 - Essential (primary) hypertension Status: Acute Assessment and Plan: Stable. (5) Type 2 diabetes mellitus without complications: Code(s): E11.9 - Type 2 diabetes mellitus without complications Status: Acute Assessment and Plan: Manage as per hospitalist. (6) Elevated troponin: Code(s): R77.8 - Other specified abnormalities of plasma proteins Status: Acute Assessment and Plan: Mild elevation peaked at .067. Elevation could be due to combination of CHF/UTI/acute ARF. EKG does not suggest ACS without any acute ST changes. (7) Leg edema, right: Code(s): R60.0 - Localized edema Status: Acute Assessment and Plan: Resolved with Lasix. 05/18/22 Venous duplex shows no DVT. Subjective Date/time seen: 05/19/22 07:47 Interval history: Denies chest pain or sob this morning. Exam Const: General: cooperative, healthy appearing and comfortable Resp: Auscultation: no crackles, no rales, rhonchi and no wheezes Cardio: Rate: regular rate Rhythm: regular rhythm Heart sounds: no murmurs Peripheral pulses: dorsalis pedis present GI: GI Palp: No abdominal tenderness and Yes Soft to palpation Neuro: General: oriented to person, oriented to place and oriented to time Extrem: Right lower extremity: no edema Left lower extremity: no edema Objective Data Vital Signs Vital Signs: Vital Signs - 24 hr 05/18/22 08:11 05/18/22 08:00 05/18/22 10:00 Temperature 98.6 F Pulse Rate 57 L 62 62 Respiratory Rate 17 Blood Pressure 128/72 Pulse Oximetry 100 Oxygen Delivery Oxygen Flow Rate Fraction of Inspired Oxygen 05/18/22 11:56 05/18/22 12:00 05/18/22 12:00 Temperature 97.9 F Pulse Rate 66 53 L Respiratory Rate 17 Blood Pressure 111/48 L Pulse Oximetry 99 98 Oxygen Delivery Oxygen Flow Rate 2 Fraction of Inspired Oxygen 96 05/18/22 14:00 05/18/22 16:13 05/18/22 16:01 Temperature 98.4 F Pulse Rate 61 56 L Respiratory Rate 17 Blood Pressure 120/69 Pulse Oximetry 99 Oxygen Delivery Nasal Cannula Oxygen Flow Rate 2 Fraction of Inspired Oxygen 05/18/22 14:58 05/18/22 16:00 05/18/22 16:00 Temperature Pulse Rate 58 L 56 L Respiratory Rate 17 Blood Pressure Pulse Oximetry 98 99 Oxygen Delivery Nasal Cannula Nasal Cannula Oxygen Flow Rate 2 2 Fraction of Inspired Oxygen 05/18/22 18:00 05/18/22 18:42 05/18/22 20:00 Temperature 98.4 F Pulse Rate 89 60 60 Respiratory Rate 19 19 Blood Pressure 129/72 Pulse Oximetry 100 100 Oxygen Delivery Nasal Cannula Oxygen Flow Rate 2 Fraction of Inspired Oxygen 96 05/18/22 20:00 05/18/22 22:00 05/18/22 23:52 Temperature 97.9 F Pulse Rate 60 63 61 Respiratory Ra
[2022-05-19 08:45] LABS: Glucose Point of Care 94 mg/dl (65-105)
[2022-05-19] MEDS: POTASSIUM CHLORIDE 20 MEQ TABLET.ER PO ×2 (09:19→17:32)
[2022-05-19] MEDS: FUROSEMIDE 20 MG TABLET PO ×2 (09:19→17:32)
[2022-05-19] MEDS: ASPIRIN 81 MG ENTERIC TABLET PO (09:19)
[2022-05-19] MEDS: LOSARTAN POTASSIUM 100 MG TABLET PO (09:19)
[2022-05-19] MEDS: PRAVASTATIN SODIUM 20 MG TABLET PO (09:19)
[2022-05-19] MEDS: ENOXAPARIN 40 MG/0.4 ML SYRINGE SUB-Q (09:20)
[2022-05-19 12:02] LABS: Glucose Point of Care 102 mg/dl (65-105)
--- NOTE | 2022-05-19 12:58 | P.CDI_ITS ---
CDI Query Clarification Request Risk Factors: Patient admitted with shortness of breath, dyspnea. Clinical Indicators: BNP was 11,000 on admission, new onset CHF was documented. Treatment: IV lasix Combined systolic and diastolic heart failure has been documented, Please specify acuity of heart failure if known. * Acute * Chronic * Acute on Chronic * Unknown <KEVIN Marie - Last Filed: 05/19/22 13:02> Clarified Diagnosis Clarified Diagnosis: patient presented with shortness of breath and BNP was 11,000, most likely patient had mild combination systolic and diastolic function as cardiac echo showed mildly reduced ejection fraction 45-50% and abnormal diastolic dysfunction. <Kartik Samson MD - Last Filed: 05/23/22 18:44>
--- NOTE | 2022-05-19 16:23 | PM.IMPN ---
Progress Note: A&P Assessment and Plan (1) Congestive heart failure: Code(s): I50.9 - Heart failure, unspecified Status: Acute Assessment and Plan: New onset.? BNP 29430.? Echo finalization pending. Improved. -Continue furosemide 20 mg IV BID -Continue potassium 20 mEq BIDWM -Appreciate Cardiology recommendations 05/19/2022 interval history: 82-year-old female with shortness of breath is found to have exacerbation of congestive heart failure combined systolic diastolic, seen by her Cardiology and suggested patient has significant diastolic component patient is being diuresed with IV Lasix her symptoms are improving recommended to switch to oral Lasix for maintenance dose as patient is more euvolemic now, patient also has a skin lesion was seen by plastic surgeon suggested to follow up as outpatient for further evaluation and biopsy, patient remains clinically stable will continue to monitor will have a PT OT evaluate the patient, patient will benefit going to acute rehab. (2) Elevated troponin: Code(s): R77.8 - Other specified abnormalities of plasma proteins Status: Acute Assessment and Plan: Troponin 0.045-->0.058--->0.067.? Denies chest pain. -Appreciate Cardiology recommendations (3) Skin lesion of chest wall: Code(s): L98.9 - Disorder of the skin and subcutaneous tissue, unspecified Status: Acute Assessment and Plan: Plastic surgery has been consulted.? (4) Essential (primary) hypertension: Code(s): I10 - Essential (primary) hypertension Status: Acute (5) Type 2 diabetes mellitus without complications: Code(s): E11.9 - Type 2 diabetes mellitus without complications Status: Acute Assessment and Plan: Takes losartan 100 mg daily at home.? Continue home medications (6) Abnormal urinalysis: Code(s): R82.90 - Unspecified abnormal findings in urine Status: Acute Assessment and Plan: Has some weakness, so will continue treatment for UTI.? UCX pending. -Ceftriaxone 1g daily Plan The patient presented to the emergency department for evaluation of shortness of breath and hypoxia. She is currently requiring 4 liters nasal can to maintain her SpO2 in the mid 90s. Chest x-ray shows congestive changes which are likely due to congestive heart failure which would be a new diagnosis for the patient. Both her troponin and BNP are elevated. EKG was reviewed and showed old evidence of prior infarction. She is being admitted for diuresis and Cardiology consultation. Echocardiogram has been ordered for a.m.. I am not convinced that she has pneumonia thus will hold on antibiotics. Her creatinine is elevated thus we will need to monitor her renal function closely while diuresing. Regarding the mass on her chest I will consult Plastic surgery for their opinion as I am worried that she will not follow-up with them as an outpatient. Her home medications will be reviewed and resumed as appropriate. Subjective Date/time seen: 05/19/22 16:23 05/19/2022 interval history: 82-year-old female with shortness of breath is found to have exacerbation of congestive heart failure combined systolic diastolic, seen by her Cardiology and suggested patient has significant diastolic component patient is being diuresed with IV Lasix her symptoms are improving recommended to switch to oral Lasix for maintenance dose as patient is more euvolemic now, patient also has a skin lesion was seen by plastic surgeon suggested to follow up as outpatient for further evaluation and biopsy, patient remains clinically stable will continue to monitor will have a PT OT evaluate the patient, patient will benefit going to acute rehab. Review of Systems Cardiovascular: Cardiovascular: Denies dyspnea Respiratory: Respiratory: Denies dyspnea Exam Narrative: Patient is comfortable, NAD HEENT: eyes are clear and none icteric LUNGS: normal respiratory effort ABD: not distended
[2022-05-19 17:27] LABS: Glucose Point of Care 110 mg/dl (65-105)
[2022-05-19 20:05] LABS: Glucose Point of Care 128 mg/dl (65-105)
[2022-05-20] VITALS (11 sets, daily range): BP systolic 105–122; BP diastolic 61–80; PULSE 57–86; RESP 16–20; TEMP 36–36.7; O2SAT 86–93
[2022-05-20 05:46] LABS: Hematocrit 37.8 % (37.0-47.0); Mean Corpuscular HGB Conc 31.7 g/dl (32-36); Mean Corpuscular Hemoglobin 30.2 pg (26-34); Mean Platelet Volume 8.7 fl (7.4-10.4); Platelet Count Result 189 k/mm3 (150-375); Red Blood Count 3.98 M/mm3 (4.2-5.4); Red Cell Distribution Width 15.9 % (11.5-14.5); White Blood Count 4.9 K/mm3 (4.5-10.0)
[2022-05-20 05:57] LABS: Blood Urea Nitrogen 16 mg/dL (7-17); Calcium 7.8 mg/dL (8.4-10.2); Carbon Dioxide > 40 mmol/L (22-30); Chloride 90 mmol/L (98-107); Estimated CRCL calculation 28 ml/min; Estimated Glomerular Filt Rate 36; Glucose 99 mg/dL (65-110); Potassium 3.8 mmol/L (3.4-5.0); Sodium 138 mmol/L (137-145)
[2022-05-20] MEDS: LEVOTHYROXINE SODIUM 25 MCG TABLET PO (06:02)
[2022-05-20 07:49] LABS: Glucose Point of Care 91 mg/dl (65-105)
[2022-05-20] MEDS: POTASSIUM CHLORIDE 20 MEQ TABLET.ER PO (09:21)
[2022-05-20] MEDS: LOSARTAN POTASSIUM 100 MG TABLET PO (09:22)
[2022-05-20] MEDS: ASPIRIN 81 MG ENTERIC TABLET PO (09:22)
[2022-05-20] MEDS: PRAVASTATIN SODIUM 20 MG TABLET PO (09:22)
[2022-05-20] MEDS: FUROSEMIDE 20 MG TABLET PO (09:22)
[2022-05-20] MEDS: ENOXAPARIN 40 MG/0.4 ML SYRINGE SUB-Q (09:23)
--- NOTE | 2022-05-20 11:06 | PM.PNCARD ---
Progress Note: A&P Assessment and Plan (1) Congestive heart failure: Code(s): I50.9 - Heart failure, unspecified Status: Acute Assessment and Plan: Acute on chronic combined systolic and diastolic heart failure but more from diastolic heart failure. CXR shows CHF with NTproBNP 11,300. Received Lasix 40 mg IV x1 in ER. On Lasix 20 mg IV BID and KCl 20 meq PO BID. On Losartan. Due to bradycardia, will hold off on beta radames. 05/18/22 Echo: EF 45-50%, apical akinesis, significant diastolic dysfunction with E/e' 35, mild (LOVE 1.6 cm2), mild MR/TR, RVSP 47 mmHg. Appears euvolemic now. Decrease Lasix 20 mg PO daily. May d/c home from cardiology standpoint and f/u with me in 1-2 weeks. (2) Acute UTI: Code(s): N39.0 - Urinary tract infection, site not specified Status: Acute Assessment and Plan: Antibiotic as per hospitalist. (3) Hyperlipidemia: Code(s): E78.5 - Hyperlipidemia, unspecified Status: Acute Assessment and Plan: Started Pravastatin and aspirin EC 81 mg daily, given she probably has CAD with apical akinesis. However this is not acute wall motion abnormality given only slight troponin elevation. (4) Essential (primary) hypertension: Code(s): I10 - Essential (primary) hypertension Status: Acute Assessment and Plan: Stable. (5) Type 2 diabetes mellitus without complications: Code(s): E11.9 - Type 2 diabetes mellitus without complications Status: Acute Assessment and Plan: Manage as per hospitalist. (6) Elevated troponin: Code(s): R77.8 - Other specified abnormalities of plasma proteins Status: Acute Assessment and Plan: Mild elevation peaked at .067. Elevation could be due to combination of CHF/UTI/acute ARF. EKG does not suggest ACS without any acute ST changes. (7) Leg edema, right: Code(s): R60.0 - Localized edema Status: Acute Assessment and Plan: Resolved with Lasix. 05/18/22 Venous duplex shows no DVT. Subjective Date/time seen: 05/20/22 11:06 Interval history: Denies chest pain or sob this morning. Exam Const: General: cooperative, healthy appearing and comfortable Resp: Auscultation: no crackles, no rales, rhonchi and no wheezes Cardio: Rate: regular rate Rhythm: regular rhythm Heart sounds: no murmurs Peripheral pulses: dorsalis pedis present GI: GI Palp: No abdominal tenderness and Yes Soft to palpation Neuro: General: oriented to person, oriented to place and oriented to time Extrem: Right lower extremity: no edema Left lower extremity: no edema Objective Data Vital Signs Vital Signs: Vital Signs - 24 hr 05/19/22 12:00 05/19/22 11:45 05/19/22 12:00 Temperature 97.7 F Pulse Rate 74 80 Respiratory Rate 20 Blood Pressure 126/73 Pulse Oximetry 90 Oxygen Delivery Room Air Oxygen Flow Rate Fraction of Inspired Oxygen 05/19/22 12:00 05/19/22 14:00 05/19/22 15:58 Temperature Pulse Rate 64 55 L Respiratory Rate Blood Pressure Pulse Oximetry 93 Oxygen Delivery Nasal Cannula Oxygen Flow Rate 2 Fraction of Inspired Oxygen 93 05/19/22 16:00 05/19/22 18:00 05/19/22 19:54 Temperature 97.8 F 98.7 F Pulse Rate 56 L 66 54 L Respiratory Rate 18 18 Blood Pressure 110/65 100/60 Pulse Oximetry 93 93 Oxygen Delivery Oxygen Flow Rate Fraction of Inspired Oxygen 05/19/22 20:00 05/19/22 20:00 05/20/22 00:00 Temperature 97.6 F Pulse Rate 64 64 60 Respiratory Rate 18 16 Blood Pressure 105/61 Pulse Oximetry 93 93 Oxygen Delivery Nasal Cannula Oxygen Flow Rate 2 Fraction of Inspired Oxygen 05/20/22 00:00 05/20/22 04:00 05/20/22 04:00 Temperature 98.1 F Pulse Rate 65 63 63 Respiratory Rate 16 Blood Pressure 120/80 Pulse Oximetry 91 Oxygen Delivery Oxygen Flow Rate Fraction of Inspired Oxygen 05/20/22 08:06 05/20/22 08:00 05/20/22 08:29 Temperature 9
[2022-05-20 12:26] LABS: Glucose Point of Care 125 mg/dl (65-105)
--- NOTE | 2022-05-20 15:00 | HOMEO2EVAL ---
Evaluation was performed at [facility] Home Oxygen Evaluation RC: Home Oxygen (O2) Evaluation Start: 05/20/22 14:05 Freq: ONCE Status: Active Protocol: RPE Activity Type Activity Date Activity User E-sign Co-sign Detail Recorded Client Recorded Date Recorded By Document 05/20/22 14:15 [email or web address] [email or web address] 05/20/22 15:00 DJO Document 05/20/22 14:20 [email or web address] [email or web address] 05/20/22 15:00 DJO Document 05/20/22 14:25 [email or web address] [email or web address] 05/20/22 15:00 DJO Document 05/20/22 14:30 [email or web address] [email or web address] 05/20/22 15:00 DJO Document 05/20/22 14:45 [email or web address] [email or web address] 05/20/22 15:00 DJO 05/20/22 05/20/22 05/20/22 14:15 14:20 14:25 Home O2 Evaluation [Oxygen] -Test Phase Resting Exercise Exercise -Oxygen Delivery Room Air Room Air Nasal Cannula -Oxygen Flow Rate (L/min) 1 [Pulse Oximetry] -Pulse Oximetry (90-100 %) 90 86 L 88 L [Pulse Rate] -Pulse Rate (60-100 beats/min) 62 82 84 [Evaluation] -Activity Tolerance [Charges] -Treatment Charges O2 Evaluation - Inpatient 05/20/22 05/20/22 14:30 14:45 Home O2 Evaluation [Oxygen] -Test Phase Exercise Resting -Oxygen Delivery Nasal Cannula Room Air -Oxygen Flow Rate (L/min) 2 [Pulse Oximetry] -Pulse Oximetry (90-100 %) 90 90 [Pulse Rate] -Pulse Rate (60-100 beats/min) 86 64 [Evaluation] -Activity Tolerance Fair [Charges] -Treatment Charges
--- NOTE | 2022-05-20 15:47 | PM.IMPN ---
Progress Note: A&P Assessment and Plan (1) Congestive heart failure: Code(s): I50.9 - Heart failure, unspecified Status: Acute Assessment and Plan: New onset.? BNP 60425.? Echo finalization pending. Improved. 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 patient clinically stable will continue to monitor. (2) Elevated troponin: Code(s): R77.8 - Other specified abnormalities of plasma proteins Status: Acute Assessment and Plan: Troponin 0.045-->0.058--->0.067.? Denies chest pain. -Appreciate Cardiology recommendations (3) Skin lesion of chest wall: Code(s): L98.9 - Disorder of the skin and subcutaneous tissue, unspecified Status: Acute Assessment and Plan: Plastic surgery has been consulted.? (4) Essential (primary) hypertension: Code(s): I10 - Essential (primary) hypertension Status: Acute (5) Type 2 diabetes mellitus without complications: Code(s): E11.9 - Type 2 diabetes mellitus without complications Status: Acute Assessment and Plan: Takes losartan 100 mg daily at home.? Continue home medications (6) Abnormal urinalysis: Code(s): R82.90 - Unspecified abnormal findings in urine Status: Acute Assessment and Plan: Has some weakness, so will continue treatment for UTI.? UCX pending. -Ceftriaxone 1g daily Plan The patient presented to the emergency department for evaluation of shortness of breath and hypoxia. She is currently requiring 4 liters nasal can to maintain her SpO2 in the mid 90s. Chest x-ray shows congestive changes which are likely due to congestive heart failure which would be a new diagnosis for the patient. Both her troponin and BNP are elevated. EKG was reviewed and showed old evidence of prior infarction. She is being admitted for diuresis and Cardiology consultation. Echocardiogram has been ordered for a.m.. I am not convinced that she has pneumonia thus will hold on antibiotics. Her creatinine is elevated thus we will need to monitor her renal function closely while diuresing. Regarding the mass on her chest I will consult Plastic surgery for their opinion as I am worried that she will not follow-up with them as an outpatient. Her home medications will be reviewed and resumed as appropriate. 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 patient clinically stable will continue to monitor. Review of Systems Cardiovascular: Cardiovascular: Denies dyspnea Respiratory: Respiratory: Denies dyspnea Exam Narrative: Patifranc
[2022-05-21 04:18] LABS: Thyroid Peroxidase Antibodies 39 IU/mL (<9)
--- NOTE | 2022-05-28 15:48 | PM.DS ---
DS: Admitting Diagnosis Discharge Date 05/20/22 Admitting Diagnosis shortness of breath DS: Discharge Diagnosis Discharge Diagnosis (1) Congestive heart failure: Code(s): I50.9 - Heart failure, unspecified Status: Acute Assessment and Plan: New onset.? BNP 97751.? Echo finalization pending. Improved. 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 patient clinically stable will continue to monitor. DS: Summary Hospital Course Reason for hospitalization: Chief Complaint: Shortness of breath. Narrative: This is an 82-year-old female with hypertension and type 2 diabetes mellitus who presented to the emergency department for evaluation of shortness of breath. She is not the greatest historian and initially the only thing she could tell me that was that she feels ?terrible.? After pretty extensive questioning I was able to ascertain that she has had a dry cough, decreased appetite, and mild shortness of breath. It is my understanding that she was hypoxic this morning at her assisted living facility with SpO2 in the 70s and she was sent to the ER for evaluation. She is currently requiring 4 liters nasal cannula to keep her oxygen saturations in the mid 90s. The rest her vital signs were stable on arrival. Chest x-ray showed congestive changes and bilateral predominantly lower lung infiltrates and her troponin and BNP were both elevated and she is being admitted in this setting for presumed new onset congestive heart failure. She has no known history of cardiac disease and she denies having experienced any chest pain, nausea, sweats, or the like in the last couple of days. 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 patient also has a skin lesion was seen by plastic surgeon suggested to follow up as outpatient for further evaluation and biopsy, patient remains clinically stable will continue to monitor will have a PT OT evaluate the patient, patient will benefit going to acute rehab. patient clinically stable will discharge patient today Time Spent with Patient Time attestation: Total time spent providing and/or coordinating discharge services: Exam Narrative: Patient is comfortable, NAD HEENT: eyes are clear and none icteric LUNGS: normal respiratory effort ABD: not distended Lower extremities: no edema SKIN: nonjaundiced Neuro: grossly intact. Discharge Plan Discharge Attending physician on discharge: Kartik Samson Consulting providers: Kp Daly ; Cm Corrales ; Fred Marrero ; Bill Lozano ; Tita Toledo ; Lalito Mirza ; Akira Carroll V. Discharging Clinician: Kartik Samson Patient Disposition: NH Senior Care/Asst Living Activity: as tolerated Diet: heart healthy Discharge Instructions: Per Care Coordination, pt. will [facility] for continued PT/OT. lawrence
== END 2022-05-20 17:50 | DRG 291 ==
LOC: ANHED 18:27 → ANHIMU 19:32
PROVIDERS: Internal Medicine Cardiovascular Disease; Physician Assistant; Admitting Provider Family Medicine; Emergency Provider Emergency Medicine; PCP Family Medicine; Visit Provider Family Medicine
DX: I11.0 Hypertensive heart disease with heart failure (principal); I50.41 Acute combined systolic (congestive) and diastolic (congestive) heart failure; N39.0 Urinary tract infection, site not specified; Z20.822 Contact with and (suspected) exposure to COVID-19; E78.5 Hyperlipidemia, unspecified; E03.9 Hypothyroidism, unspecified; E11.9 Type 2 diabetes mellitus without complications; Z96.643 Presence of artificial hip joint, bilateral; L98.9 Disorder of the skin and subcutaneous tissue, unspecified; R77.8 Other specified abnormalities of plasma proteins; I25.10 Atherosclerotic heart disease of native coronary artery without angina pectoris; L57.0 Actinic keratosis
CPT/HCPCS: 36415; 71045; 76775; 80048; 80053; 80061; 81001; 82948; 83036; 83735; 83880; 84439; 84443; 84484; 85025; 85027; 85380; 86376; 87086; 87502; 93005; 93306; 93970; 94618; 96361; 96365; 96372; 96375; 96376; 97110; 97116; 97161; 97165; 97530; 97535; 99285; A9270; G0378; J0696; J1650; J1940; J7030; U0003; U0005

== ENCOUNTER 2022-05-24 12:33 | Outpatient (CLI) | payer MEDICARE, MEDICAID, SELFPAY ==
[2022-05-24 19:05] LABS: Alanine Aminotransferase 15 U/L (6-35); Albumin Level 4.3 g/dL (3.5-5.1); Alkaline Phosphatase 67 U/L (38-126); Anion Gap 13 mmol/L (8-16); Aspartate Amino Transferase 32 U/L (14-36); Bilirubin,Total 0.5 mg/dL (0.2-1.3); Blood Urea Nitrogen 12 mg/dL (7-17); Carbon Dioxide 34 mmol/L (22-30); Chloride 87 mmol/L (98-107); Estimated Glomerular Filt Rate 43; Glucose 121 mg/dL (65-110); Potassium 3.7 mmol/L (3.4-5.0); Sodium 134 mmol/L (137-145)
[2022-05-24 19:14] LABS: NT Pro B Type Natriuretic Pept 7710 pg/mL (5-100)
== END 2022-05-24 12:34 | disposition home or self-care (01) ==
LOC: ANHGOSHLAB 12:35
PROVIDERS: PCP Family Medicine; Visit Provider Nurse Practitioner
DX: I10 Essential (primary) hypertension (principal); I50.9 Heart failure, unspecified
CPT/HCPCS: 36415; 80053; 83880

== ENCOUNTER 2022-07-07 02:01 | Day surgery (SDC) | payer MEDICARE, MEDICAID, SELFPAY ==
[2022-06-24 10:54] VITALS: BMI 26.3
--- NOTE | 2022-06-24 11:11 | PC.NURSE ---
Report to the Outpatient Waiting Room, entrance under the green pavilion located off [facility], at time __6:00AM on date _07/07/22 . Planned Procedure Time: __7:30AM . Time changes happen often and if your time is changed the preop area will call you the afternoon before. - You and your visitor will be asked to self-screen and do not enter if you have any COVID symptoms. - Only one visitor is requested with a max of two and NO children visitors are allowed at this time. - The patient visitor may be requested to leave or wait in car when not with patient due to distancing restrictions. - A mask is optional within the hospital. Patients may have clear liquids (water, carbonated beverages, clear teas, apple juice) until 3 hours prior to surgery with a maximum of 20 ounces. - No food from midnight until time of surgery Take the following medications with a SIP of water the morning of surgery: ____LEVOTHYROXINE Medications to discontinue per physician ____NONE Date to take last dose Please no make-up, nail malay, hairspray, perfume, deodorant, or body powder the day of surgery. No jewelry (including any body piercings) or valuables the day of surgery, leave them at home. Please take a shower or bath the night before, or the morning of, surgery with an antibacterial soap. Wear comfortable, loose fitting clothing. Children are encouraged to wear pajamas. - Jewelry must be removed prior to entering the operating room. Rings and piercings that are not removed may be cut off. - The hospital will not accept responsibility for valuables. - Please leave all valuables, including medications, at home the day of surgery. If you are going home after surgery, a licensed ups driver must drive you home. - NO public transportation without another adult if you receive anesthesia. - We recommend that an adult stay with you for 24 hours following discharge. - We also recommend that you do not drive, make important decision, drink alcoholic beverages, or take any drugs that were not prescribed by your health care provider for at least 24 hours after your discharge time. Follow any additional instructions given to you from your surgeon. If you or anyone in your household have experienced Covid symptoms in the past week, please notify your surgeon or the nurse liaison at the phone number below for possible testing. Telephone instructions given to _[facility]SING HOME and asked if any additional questions and then verbalized understanding. Patient advised to call surgeon office or pre surgery nurse liaison [phone] if any additional questions.
[2022-07-07 06:06] VITALS: BP 171/95; PULSE 65; RESP 16; TEMP 36.7; O2SAT 94
[2022-07-07 06:37] LABS: Glucose Point of Care 108 mg/dl (65-105)
[2022-07-07] MEDS: LACTATED RINGERS 1,000 ML 30 ML IV CONT ×2 (06:45→09:02)
--- NOTE | 2022-07-07 07:13 | WPDHPUPDATE1 ---
History and Physical Update Update Date/Time: 07/07/22 07:13 History and Physical has been reviewed, including an updated exam of the patient. There are NO changes in the patient's condition. Risks, benefits, and alternatives have been discussed and questions answered. Patient agrees to proceed with procedure.
--- NOTE | 2022-07-07 07:17 | WPDANESEPPF ---
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 - Anand Styles MD Date/Time: 07/07/22 07:17 Surgeon: Anand Styles MD Pre Op Diagnosis: Ulcerated Neoplasm Midline Upper Chest Patient Data Age: 82 Gender: F Height: 1.68 m Weight: 71.2 kg Last Vital Signs Temp 36.7 C 07/07/22 06:06 Pulse 65 07/07/22 06:06 Resp 16 07/07/22 06:06 BP 171/95 H 07/07/22 06:06 Pulse Ox 94 07/07/22 06:06 O2 Del Method Room Air 07/07/22 06:06 Allergies Allergy/AdvReac Type Severity Reaction Status Date / Time No Known Allergies Allergy Verified 07/07/22 06:47 Home Medications Medication Instructions Recorded Confirmed Type losartan 100 mg tablet 100 mg PO DAILY 05/17/22 07/07/22 History aspirin 81 mg tablet,delayed 81 mg PO QAM #30 tabs 05/20/22 07/07/22 Rx release levothyroxine 25 mcg tablet 25 mcg PO DAILY@0630 #30 tabs 05/20/22 07/07/22 Rx pravastatin 20 mg tablet 20 mg PO DAILY #30 tabs 05/20/22 07/07/22 Rx furosemide 40 mg tablet (Lasix) 40 mg PO QAM #30 tabs 05/25/22 07/07/22 Rx potassium chloride 20 mEq oral 20 meq PO BID #100 ea 05/25/22 07/07/22 Rx packet sitagliptin phosphate 100 mg 1 mg PO DAILY 06/24/22 07/07/22 History tablet (Januvia) Laboratory Tests 07/07/22 06:33 POC Capillary Glucose 108 mg/dl H mg/dl (65-105) Patient hx anesthesia problems: none Family hx anesthesia problems: none Results Review: All pre-operative results and documents have been reviewed as part of the pre-operative evaluation. [facility] Past Medical History Medical History Essential (primary) hypertension Hyperlipidemia Hypothyroid Type 2 diabetes mellitus without complications Surgical History Surgical History History of bilateral hip replacements Family History Family History Other Family history of development disorder Hypertension Social History Social History Social History: Surrogate medical decision maker: Valentín Newby, alea. Code status: Full code. Smoking status: Never smoker Second hand tobacco smoke exposure: No Alcohol intake: never Substance use: never Lack of Transportation: No Lack of Food: Never True Current Housing: I Have Housing Concerned About Future Housing: No Difficulty Paying Gas/Electric Bills: No Difficulty Paying for Meds: No Currently Unemployed: No Education: High School Diploma/GED Difficulty w/ Childcare or Family Care: No Living arrangements: assisted living Additional living arrangements comments: Assisted living at [facility]. Spiritual care concerns: No Anes - Eval Final PreProcedure Day of Procedure 07/07/22 07:17 Patient weight: normal Heart: regular rate and rhythm Lungs: clear to auscultation Airway: Mallampati scale class III Neurological: other (alert) Last oral intake: >/= 8 hours ASA classification: III Emergent: no Anesthetic plan: proceed Anesthesia type and monitoring: general GIVS and standard monitoring Results Review: All pre-operative results and documents have been reviewed as part of the pre-operative evaluation. Informed Consent: The patient's anesthetic plan and its attendant risks and benefits were discussed with the patient/family/POA. Questions were solicited and answers provided to the satisfaction of the patient/family/POA.
--- NOTE | 2022-07-07 08:10 | SUR.OPER ---
Addendum entered by Jeremiah Sanchez RN 07/07/22 08:41: Margins clear on both specimens, Pathologist report to Dr. Blakely via phone Original Note: Left Cheek (suture @ 12 o'clock near lateral campus) Incision- 0745 Excision- 0748 Out of room- 0751 Lab handoff- Elizabeth @ 0755 Chest (suture @ 12 o'clock superior) Incision- 0753 Excision- 0800 Out of room- 0801 Lab handoff- Elizabeth @ 0806
[2022-07-07] MEDS: BACITRACIN OINTMENT 15 GM TUBE 1 APPLIC TOPICAL (08:53)
[2022-07-07 09:02] VITALS: BP 118/70; PULSE 63; RESP 20
--- NOTE | 2022-07-07 09:25 | W.PM.PROC2 ---
Procedure Note - Detailed Date of Procedure 07/07/22 Pre-op Diagnosis Ulcerated Neoplasm Midline Upper Chest Post-op Diagnosis Other (SCC left cheek. SCC of mid upper chest.) Procedure Performed 2.5 cm excision of SCC left cheek with FS and intermediated repair 5 cm. c.5 cm excision of SCC mid upper chest with FS and complex repair 7 cm. Surgeon Anand Styles MD [employer] Brandon Anesthesia MAC Findings SCC margins free both sites. Description of Procedure Santa Fitzgerald was examined the holding area where the 2 sites 1 on the left cheek and mid upper sternum marked for excision. She was taken to the operating room placed supine operating table. She was position pressure points padded and she was given sedation anesthesia with an LMA. The entire face and upper chest were prepped and draped in the usual fashion. A time-out was held and confirmed. The 2 tumors were marked for excision with ink and locally infiltrated with 2% lidocaine with epinephrine. The from left cheek was taken 1st the full-thickness skin ellipse was estimated 5 mm margin. This was taken from the level of the parotid fascia care was taken to observe for the motor nerve stimulation. The specimen was marked at the aspect most near the lateral canthus and sent for frozen section. The pathologist reported squamous cell carcinoma, very little in the specimen, and free margins. During the interim, we excised the larger lesion from the mid upper chest. This lay over the manubrium. It was taken to the deep fascial level and marked at the most superior aspect for 12 o'clock and sent to pathology. The pathologist reported that this squamous cell carcinoma margins were free. The wound on the chest was undermined widely 4 cm along the inferior margin exceeding the with of the excision and 2-3 cm along the upper margin. We were able to coax the wound margins easily with intradermal 2-0 Vicryl suture multiple sites. His that create undue tension tissue the skin was closed with a running 5 0 nylon. The wound on the left cheek was also undermined both directions approximately 2 cm in all areas and the wound approximated using intradermal 3-0 Vicryl and the skin was then closed with a running 5 0 nylon, no standing cones were removed the wounds were dressed with antibiotic ointment and the small gauze and Tegaderm dressing on the chest. Estimated Blood Loss 30 Drains No Packing No Pathology Yes Complications No immediate complications Condition Stable Disposition Same day
[2022-07-07 09:30] VITALS: BP 141/87; PULSE 61; RESP 20
[2022-07-07 09:55] VITALS: BP 153/92; PULSE 66; RESP 20
== END 2022-07-07 10:05 | disposition home or self-care (01) ==
PROVIDERS: PCP Family Medicine; Visit Provider Plastic Surgery
PROC: (CPT 11643; principal; 2022-07-07 07:30)
PROC: (CPT 11643; 2022-07-07 07:30)
DX: C44.329 Squamous cell carcinoma of skin of other parts of face (principal); L57.0 Actinic keratosis; I10 Essential (primary) hypertension; E78.5 Hyperlipidemia, unspecified; E03.9 Hypothyroidism, unspecified; E11.9 Type 2 diabetes mellitus without complications; Z79.82 Long term (current) use of aspirin; Z79.84 Long term (current) use of oral hypoglycemic drugs
CPT/HCPCS: 11643; 12052; 11406; 13101; 82948; 88305; 88331; 88332; A9270; J1100; J2405; J2704; J2710; J7120

== ENCOUNTER 2022-08-14 07:51 | Outpatient (CLI) | payer MEDICARE, MEDICAID, SELFPAY ==
[2022-08-14 08:50] LABS: Basophils Absolute Auto 0.1 K/mm3 (0.0-0.1); Basophils Percent Auto 1.3 % (0.2-1.2); Eosinophils Absolute Auto 0.2 K/mm3 (0-0.3); Eosinophils Percent Auto 2.9 % (0-4.4); Hematocrit 41.1 % (37.0-47.0); Hemoglobin 12.9 g/dL (12.0-15.0); Immature Granulocyte Absolute 0.02 K/mm3 (0.00-0.031); Immature Granulocyte Percent A 0.3 % (0-0.5); Lymphocytes Absolute Auto 2.88 K/mm3 (0.9-3.2); Mean Corpuscular HGB Conc 31.4 g/dl (32-36); Mean Corpuscular Hemoglobin 29.2 pg (26-34); Mean Platelet Volume 9.7 fl (7.4-10.4); Monocytes Absolute Auto 0.6 K/mm3 (0.1-0.6); Monocytes Percent Auto 9.1 % (2.6-8.5); Neutrophils Absolute Auto 2.4 K/mm3 (1.3-6.7); Neutrophils Percent Auto 39.4 % (45.5-73.1); Platelet Count Result 176 k/mm3 (150-375); Red Blood Count 4.42 M/mm3 (4.2-5.4); White Blood Count 6.1 K/mm3 (4.5-10.0)
[2022-08-14 09:03] LABS: Alanine Aminotransferase 15 U/L (6-35); Albumin Level 4.5 g/dL (3.5-5.1); Alkaline Phosphatase 80 U/L (38-126); Anion Gap 6 mmol/L (8-16); Aspartate Amino Transferase 27 U/L (14-36); Bilirubin,Total 0.6 mg/dL (0.2-1.3); Blood Urea Nitrogen 21 mg/dL (7-17); Carbon Dioxide 36 mmol/L (22-30); Chloride 96 mmol/L (98-107); Cholesterol 201 mg/dL (0-200); Estimated Glomerular Filt Rate 48; Glucose 111 mg/dL (65-110); HDL Direct 28 mg/dL; Potassium 3.5 mmol/L (3.4-5.0); Sodium 138 mmol/L (137-145); Triglycerides 348 mg/dL (<150)
[2022-08-14 09:14] LABS: LDL Cholesterol Direct 75 mg/dL
[2022-08-14 09:18] LABS: Hemoglobin A1C 6.4 % (<5.7)
[2022-08-14 10:29] LABS: Free T4 Free Thyroxine Reflex 0.53 ng/dL (0.78-2.19)
== END 2022-08-14 07:52 | disposition home or self-care (01) ==
PROVIDERS: PCP Family Medicine; Visit Provider Nurse Practitioner
DX: E78.5 Hyperlipidemia, unspecified (principal); I10 Essential (primary) hypertension; E11.9 Type 2 diabetes mellitus without complications; E03.9 Hypothyroidism, unspecified
CPT/HCPCS: 36415; 80053; 80061; 83036; 84439; 84443; 85025

== ENCOUNTER 2023-04-19 16:17 | Outpatient (CLI) | payer MEDICARE, MEDICAID, SELFPAY ==
--- NOTE | ~2023-04-19 | US_ITS ---
US soft tissue head and neck 04/19/2023 18:37 Indication: Localized enlarged lymph nodes Procedure: High-resolution Limited ultrasound of the neck in the area palpable concern Comparison: No prior studies for comparison. Findings: There are soft tissue masses in zone 2 of the neck on the right, largest measuring 2.3 x 2 x 1.7 cm with heterogeneous internal echotexture and no evidence for normal echogenic hilum. The smal ler mass measures 2 x 1.5 x 1.2 cm. Impression: 1: Complex predominantly hypoechoic right neck masses and zone 2, largest measuring 2.3 cm, likely pa thologic lymph nodes. Recommend correlation with contrast-enhanced CT neck to assess for other areas of abnormality. Malignancy not excluded. Reviewed, dictated and finalized at location B. Impression: 1: Complex predominantly hypoechoic right neck masses and zone 2, largest measu ring 2.3 cm, likely pathologic lymph nodes. Recommend correlation with contrast -enhanced CT neck to assess for other areas of abnormality. Malignancy not excl uded.
== END 2023-04-19 16:18 | disposition home or self-care (01) ==
PROVIDERS: PCP Family Medicine; Visit Provider Nurse Practitioner Family
DX: R22.1 Localized swelling, mass and lump, neck (principal)
CPT/HCPCS: 76536

== ENCOUNTER 2023-05-31 07:57 | Outpatient (CLI) | payer MEDICARE, MEDICAID, SELFPAY ==
--- NOTE | ~2023-05-31 | CT_ITS ---
CT scan of the Neck Technique: 2.5 mm axial scans were obtained through the neck after intravenous administration of 75 c c Omnipaque 350. Coronal and sagittal reconstructions of the neck were obtained. Dose reduction techn ique was used on this scan by utilizing automated exposure control and iterative reconstruction techn ique. The dose-length product (DLP) was 482.67 mGy-cm. Clinical History: Lymphadenopathy Findings: There are enlarged right level 2 lymph nodes, along the anterior margin of the sternocleidomastoid mu scle, with heterogeneous appearance. More medial node measures 1.8 x 1.4 cm, and the more superficial node measures 1.4 x 1.0 cm (axial images 40-45 for example). There are additional shotty, minimally prominent rounded lymph nodes in the supraclavicular regions bilaterally (axial images 56-59 for exam ple). Largest of these nodes is on the left side measuring 1.3 cm in diameter (axial image 57). Parapharyngeal spaces appear normal bilaterally. The parotid and submandibular glands appear normal. The pharyngeal mucosal spaces appear normal. No soft tissue masses are seen in the neck. The thyroid gland appears normal. Images of the lung apices reveal no abnormalities. Degenerative kedar nge of the cervical spine noted. Impression: Cervical lymphadenopathy, as detailed above, most prominent at the right level 2 region. Tissue sampl ing should be strongly considered to establish histologic diagnosis, as neoplastic/metastatic disease is a strong diagnostic consideration. Reviewed, dictated and finalized at [facility]. SITION OPERATOR Impression: Cervical lymphadenopathy, as detailed above, most prominent at the right level 2 region. Tissue sampling should be strongly considered to establish histologic diagnosis, as neoplastic/metastatic disease is a strong diagnostic considerati on.
[2023-05-31 08:28] LABS: Estimated Glomerular Filt Rate 39
== END 2023-05-31 07:58 | disposition home or self-care (01) ==
PROVIDERS: PCP Family Medicine; Visit Provider Nurse Practitioner Family
DX: R59.0 Localized enlarged lymph nodes (principal)
CPT/HCPCS: 70491; Q9967

== ENCOUNTER 2024-11-24 08:42 | Outpatient (CLI) | payer MEDICARE, OTHER, SELFPAY ==
[2024-11-24 09:28] LABS: Basophils Absolute Auto 0.1 K/mm3 (0.0-0.1); Eosinophils Absolute Auto 0.2 K/mm3 (0-0.3); Eosinophils Percent Auto 2.7 % (0-4.4); Hematocrit 41.1 % (37.0-47.0); Hemoglobin 13.1 g/dL (12.0-15.0); Immature Granulocyte Absolute 0.02 K/mm3 (0.00-0.031); Immature Granulocyte Percent A 0.3 % (0-0.5); Lymphocytes Absolute Auto 2.68 K/mm3 (0.9-3.2); Lymphocytes Percent Auto 40.1 % (18.3-44.2); Mean Corpuscular HGB Conc 31.9 g/dl (32-36); Mean Corpuscular Hemoglobin 29.8 pg (26-34); Mean Corpuscular Volume 93.6 fl (80-100); Mean Platelet Volume 9.2 fl (7.4-10.4); Monocytes Absolute Auto 0.7 K/mm3 (0.1-0.6); Monocytes Percent Auto 9.9 % (2.6-8.5); Neutrophils Absolute Auto 3.1 K/mm3 (1.3-6.7); Platelet Count Result 182 k/mm3 (150-375); Red Blood Count 4.39 M/mm3 (4.2-5.4); Red Cell Distribution Width 13.8 % (11.5-14.5); White Blood Count 6.7 K/mm3 (4.5-10.0)
[2024-11-24 09:40] LABS: Alanine Aminotransferase 16 U/L (6-35); Albumin Level 4.6 g/dL (3.5-5.1); Alkaline Phosphatase 77 U/L (38-126); Anion Gap 10 mmol/L (4-12); Aspartate Amino Transferase 28 U/L (14-36); Bilirubin,Total 0.8 mg/dL (0.2-1.3); Blood Urea Nitrogen 15 mg/dL (7-17); Calcium 9.3 mg/dL (8.4-10.2); Carbon Dioxide 35 mmol/L (22-30); Chloride 95 mmol/L (98-107); Cholesterol 173 mg/dL (0-200); Estimated Glomerular Filt Rate 42; Glucose 98 mg/dL (65-110); HDL Direct 28 mg/dL; Potassium 3.8 mmol/L (3.4-5.0); Sodium 140 mmol/L (137-145); Triglycerides 428 mg/dL (<150)
[2024-11-24 09:45] LABS: Hemoglobin A1C 6.3 % (<5.7)
[2024-11-24 09:51] LABS: LDL Cholesterol Direct 43 mg/dL
[2024-11-24 10:02] LABS: Vitamin D 25 Hydroxy 54.5 ng/mL
== END 2024-11-24 08:43 | disposition home or self-care (01) ==
PROVIDERS: PCP Family Medicine; Visit Provider Nurse Practitioner Family
DX: E78.5 Hyperlipidemia, unspecified (principal); E03.9 Hypothyroidism, unspecified; I11.0 Hypertensive heart disease with heart failure; E11.9 Type 2 diabetes mellitus without complications; E55.9 Vitamin D deficiency, unspecified
CPT/HCPCS: 36415; 80053; 80061; 82306; 83036; 84439; 84443; 85025

== ENCOUNTER 2025-05-29 07:52 | Outpatient (CLI) | payer MEDICARE, MEDICAID, SELFPAY ==
[2025-05-29 08:29] LABS: Hematocrit 41.3 % (37.0-47.0); Hemoglobin 13.2 g/dL (12.0-15.0); Immature Granulocyte Percent A 0.4 % (0-0.5); Lymphocytes Absolute Auto 3.08 K/mm3 (0.9-3.2); Mean Corpuscular HGB Conc 32.0 g/dl (32-36); Mean Corpuscular Hemoglobin 29.9 pg (26-34); Mean Corpuscular Volume 93.4 fl (80-100); Nucleated Red Blood Cells Absolute Auto 0.000 K/mm3 (0.0-0.012); Nucleated Red Blood Cells Perc 0.0 % (0.0-0.2); Platelet Count Result 232 k/mm3 (150-375); Red Blood Count 4.42 M/mm3 (4.2-5.4); White Blood Count 7.3 K/mm3 (4.5-10.0)
[2025-05-29 08:57] LABS: Alanine Aminotransferase 13 U/L (6-35); Albumin Level 4.6 g/dL (3.5-5.1); Alkaline Phosphatase 86 U/L (38-126); Anion Gap 10 mmol/L (4-12); Aspartate Amino Transferase 32 U/L (14-36); Bilirubin,Total 0.6 mg/dL (0.2-1.3); Blood Urea Nitrogen 17 mg/dL (7-17); Calcium 9.5 mg/dL (8.4-10.2); Carbon Dioxide 33 mmol/L (22-30); Chloride 97 mmol/L (98-107); Cholesterol 192 mg/dL (0-200); Estimated Glomerular Filt Rate 40; Glucose 114 mg/dL (65-110); HDL Direct 33 mg/dL; Magnesium 2.0 mg/dL (1.6-2.3); Potassium 3.5 mmol/L (3.4-5.0); Sodium 140 mmol/L (137-145); Total Protein 9.5 g/dL (6.3-8.2); Triglycerides 356 mg/dL (<150)
[2025-05-29 08:58] LABS: Hemoglobin A1C 6.1 % (<5.7)
[2025-05-29 09:51] LABS: Vitamin B12 259.0 pg/mL (239-931)
[2025-05-29 13:39] LABS: Thyroid Stimulating Hormone Reflex 5.070 uIU/mL (0.465-4.68)
[2025-05-29 16:47] LABS: Free T4 Free Thyroxine Reflex 0.50 ng/dL (0.78-2.19)
== END 2025-05-29 07:53 | disposition home or self-care (01) ==
LOC: ANHLAB 07:54
PROVIDERS: PCP Family Medicine; Visit Provider Nurse Practitioner Family
DX: I50.9 Heart failure, unspecified (principal); E11.9 Type 2 diabetes mellitus without complications; E55.9 Vitamin D deficiency, unspecified; E78.2 Mixed hyperlipidemia; I11.0 Hypertensive heart disease with heart failure
CPT/HCPCS: 36415; 80053; 80061; 82306; 82607; 83036; 83735; 84439; 84443; 85025